=== PATIENT | male | born 1975 | race Caucasian/White ===

== ENCOUNTER 2021-11-11 18:02 | Emergency (ER) | payer OTHER, SELFPAY ==
[2021-11-11 18:17] VITALS: BP 133/88; PULSE 80; RESP 16; TEMP 36.7; O2SAT 98; BMI 28.0
[2021-11-11 18:30] VITALS: BP 137/96; PULSE 75; RESP 16; O2SAT 96
[2021-11-11] MEDS: EPINEPHrine 0.3 MG PEN IM (18:43)
[2021-11-11] MEDS: METHYLPREDNISOLONE SOD SUCC 62.5 MG/ML (125) 125 MG IVP (18:53)
[2021-11-11] MEDS: 0.9 % SODIUM CHLORIDE 500 ML 500 ML IV (18:56)
[2021-11-11 19:00] VITALS: BP 144/117; PULSE 73; O2SAT 94
[2021-11-11] MEDS: CETIRIZINE HCL 10 MG TABLET PO (19:09)
[2021-11-11 19:30] VITALS: BP 135/90; PULSE 77; O2SAT 95
--- NOTE | 2021-11-11 19:54 | ED.GENADULT ---
HPI - General Adult General Chief complaint: Bug Bite Stated complaint: STUNG BY WASP RIGHT HAND,ALLERGIC REACTION Time Seen by Provider: 11/11/21 18:34 Source: patient Mode of arrival: ambulatory Limitations: no limitations History of Present Illness HPI narrative: 46-year-old male coming in today after being stung by a wasp on the right hand. Patient states that he very shortly after the sting felt tingling sensation going up the right arm. He felt heat in his ears in his mouth and on the left side of his body. He then felt the back of his throat start to swell up a little bit and his whole body got very itchy so he presented to the ED. He states that he has been stung in the past never had a reaction like this before. He feels like the back of his throat is getting a little bit worse as time goes on and is the swelling of his right hand. He is currently not short of breath. Related Data Previous Rx's Medication Instructions Recorded epinephrine 0.3 mg/0.3 mL 0.3 mg (0.3 mL) IM Q5-15M PRN #2 ea 11/11/21 injection, auto-injector prednisone 20 mg tablet 20 mg PO DAILY #3 tab 11/11/21 Allergies Allergy/AdvReac Type Severity Reaction Status Date / Time venom-wasp Allergy Severe Swelling Verified 11/11/21 18:23 of Lip/Tongue/Throat Review of Systems Status of ROS: Reports: 6 or more systems reviewed and unremarkable except as noted in History and below [facility] Social History Smoking Status: Never smoker Do you use any of these nicotine containing products: None How often do you have a drink containing alcohol: monthly or less How many standard drinks containing alcohol do you have on a typical day: 1 or 2 How often do you have six or more drinks on one occasion: Never AUDIT-C Alcohol total score: 1 Non-prescribed substance use: denies use Exam Narrative: Exam Narrative: Well-nourished well-developed patient in no acute distress. Alert and oriented. Answers questions appropriately. Mood and affect are appropriate. Thoughts are goal oriented and rational. No tangential or magical thinking noted. Patient speaks in full sentences without needing to catch his breath. Speech is not slurred or pressured. Voice sounds normal. HEENT: Normocephalic atraumatic. Pupils are equally round reactive to light. Extraocular muscles are intact. Conjunctivae are moist without any icterus noted. Moist mucous membranes. Posterior pharynx is normal. Do not appreciate any lip or tongue swelling. Neck is soft without any lymphadenopathy or thyromegaly. No masses are appreciated. Cardiovascular: Heart is regular rate and rhythm S1 and S2 are present without any murmurs. Lungs: Clear to auscultation bilaterally no wheezes rhonchi or rales are appreciated. Patient takes deep breaths without any discomfort. Extremities: Patient's right hand is quite swollen on the dorsal surface. He has an erythematous rash that goes up the arm into the shoulder area. The right torso is covered in hives that are confluent in multiple areas. There is no rash on his face. Const: Vital Signs, click to edit/add: Vital Signs - 24 hr 11/11/21 18:17 11/11/21 18:30 Temperature 98.0 F Pulse Rate [Left P ulse Oximeter] 80 75 Respiratory Rate 16 16 Blood Pressure [Ri t Upper Arm] 133/88 137/96 H Pulse Oximetry 98 96 Course Course Hospital Course: IM epinephrine was used. IV was started and patient received normal saline, Solu-Medrol and oral cetirizine. Patient's symptoms completely resolved. He was monitored for 2 hours and had no recurrence. Vital Signs Vital signs: Initial Vital Signs Temperature 98.0 F 11/11/21 18:17 Temperature Source Temporal Artery Scan 11/11/21 18:17 Pulse Rate 80 11/11/21 18:17 Respiratory Rate 16 11/11/21 18:17 Blood Pressure 133/88 11/11/21 18:17 Blood Pressure Mean 103 11/11/21 18:17 Blood Pressure Position Sitting 11/11/21 18:17 Pulse Oximetry 98 11/11/21 18:17 Oxygen Delivery Method 11/11/21 18:17 Vital Signs Temperature 98.0 F 11/11/21 18:17 Pulse Rate 80 11/11/21 18:17 Respiratory Rate 16 11/11/21 18:17 Blood Pressure 133/88 11/11/21 18:17 Pulse Oximetry 98 11/11/21 18:17 Temperature 98.0 F 11/11/21 18:17 Pulse Rate 75 07/19/22 18:30 Respiratory Rate 16 11/11/21 18:30 Blood Pressure 137/96 H 11/11/21 18:30 Pulse Oximetry 96 11/11/21 18:30 Medical Decision Making MDM Narrative Medical decision making narrative: Allergic reaction to wasp bite. Patient will be discharged home with an EpiPen to use as needed. He will also be discharged with another 3 days of prednisone. He is eager to take daily Zyrtec for the next 3 days as well. Return if he has any shortness of breath, swelling of the mouth including lips or tongue. Patient was agreeable and had no other questions. Discharge Plan Discharge Clinical Impression: Allergic reaction Patient Disposition: Home, Self-Care Condition: Improved Additional Instructions: Take steroid daily for the next 3 days. Take a daily Zyrtec for the next 3 days as well-this one can be purchased [id number]. Okay to start both medications tomorrow morning. Return to the ER if you develop any difficulty breathing, swelling of your mouth or lips. You will also be discharged home today with an EpiPen-you should consider using this should you get stung by a wasp again and have similar symptoms. Prescriptions: New prednisone 20 mg tablet 20 mg PO DAILY Qty: 3 0RF epinephrine 0.3 mg/0.3 mL auto-injector 0.3 mg IM Q5-15M PRNQty: 2 1RF Rx Instructions: do not exceed 3 doses per episode Follow Up/Referrals: Provider,Not a Local [Primary Care Provider] - Stand Alone Forms: [email or web address] Info Instructions
[2021-11-11 20:00] VITALS: BP 129/77; PULSE 79; O2SAT 94
== END 2021-11-11 20:30 | disposition home or self-care (01) ==
PROVIDERS: Emergency Provider Family Medicine
DX: T63.441A Toxic effect of venom of bees, accidental (unintentional), initial encounter (principal); R22.31 Localized swelling, mass and lump, right upper limb
CPT/HCPCS: 96372; 96374; 99284; A9270; J0171; J2930; J7120